=== PATIENT | male | born 2000 | race African-American/Black ===

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

== ENCOUNTER 2020-11-13 19:21 | Emergency (ER) | payer OTHER, BC ==
[~2020-11-13 19:21] MED LIST: Iopamidol-370 76% 500 ML 1 ML ONE
== END 2020-11-13 20:40 | disposition home or self-care (01) ==
LOC: ERS 19:21
DX: S30.0XXA Contusion of lower back and pelvis, initial encounter (principal); S80.12XA Contusion of left lower leg, initial encounter; S80.11XA Contusion of right lower leg, initial encounter; V80.010A Animal-rider injured by fall from or being thrown from horse in noncollision accident, initial encounter
CPT/HCPCS: 71260; 72125; 74177; G0390; Q9967